=== PATIENT | female | born 1955 | race Caucasian/White ===

== ENCOUNTER → 2017-01-17 | Outpatient (CLI) | payer BC | LOC: CARD 11:38 | PROVIDERS: ATTEND Internal Medicine Interventional Cardiology | DX: R07.9 Chest pain, unspecified (principal); R42 Dizziness and giddiness; I10 Essential (primary) hypertension; E78.5 Hyperlipidemia, unspecified; R55 Syncope and collapse | CPT/HCPCS: 93306 ==

== ENCOUNTER 2017-02-14 08:05 | Outpatient (RCR) | payer BC ==
[2017-02-19] MEDS ORDERED: OMEG-160 PO (13:36)
[2017-02-19] MEDS ORDERED: GABA-486 PO (13:36)
[2017-02-19] MEDS ORDERED: ATEN50TA PO (13:36)
[2017-02-19] MEDS ORDERED: MELO15TA39 PO (13:36)
[2017-02-19] MEDS ORDERED: MULT1TAB69 PO (13:36)
[2017-02-19] MEDS ORDERED: DIAZ2TAB2 PO (13:36)
[2017-02-19] MEDS ORDERED: CITA40TA11 PO (13:36)
[2017-02-19] MEDS ORDERED: PRAV40TA2 PO (13:36)
[2017-02-19] MEDS ORDERED: HYDR25TA4 PO (13:36)
[2017-02-19] MEDS ORDERED: ESTR1TAB27 PO (13:36)
== END 2017-04-17 | disposition home or self-care (01) ==
LOC: CARD 08:05
PROVIDERS: ATTEND Internal Medicine Interventional Cardiology
DX: R42 Dizziness and giddiness (principal); R55 Syncope and collapse
CPT/HCPCS: 93270

== ENCOUNTER → 2017-02-15 | Outpatient (CLI) | payer BC ==
[~2017-02-15] VITALS: Ht 157.5 cm; Wt 90.3 kg
[~2017-02-15] MED LIST: CATHETER FLUSH 10 ML SYR IV PRN; REGADENOSON 0.4 MG/5 ML SYR (LEXISCAN) IV ONE
[2017-02-15 09:16] VITALS: BP 143/85
[2017-02-15 09:39] VITALS: BP 143/85
--- NOTE | 2017-02-16 21:25 | STRESS TEST ---
DATE OF SERVICE: 02/15/2017 PHARMACOLOGICAL NUCLEAR STRESS TEST REPORT PRIMARY PHYSICIAN: Anushka Ramirez MD. ATTENDING PHYSICIAN: Dr. Raquel Atkins. DIAGNOSIS: Chest pain. PROCEDURE DETAILS: The patient was brought to the stress lab after informed consent was taken. A stress test was performed according to the Lexiscan protocol. A 0.4 mg of IV Lexiscan was given. Low-grade exercise was performed. Resting EKG showed sinus rhythm at 60 beats per minute and blood pressure 143/85 mmHg. Maximum heart rate was 82 BPM and blood pressure was 148/82 mmHg. There was no chest pain, arrhythmias or ST changes noted during the stress test. A 10.14 mCi of Myoview were given for rest imaging and 30.1 mCi of Myoview were given for stress imaging. TID was 1.02 and EF of 76% with no wall motion abnormalities. There is moderate-sized anterior reversible defect noted. CONCLUSION: 1. Pharmacological stress test is negative for ischemia. 2. Normal LV function with no wall motion abnormalities. 3. There is evidence of anterior ischemia. Coronary angiography is recommended. Job ID: [id number] DocumentID: [id number] Dictated Date: 02/16/2017 16:22:29 Assistant Producer Date: 02/16/2017 20:17:47 Dictated By: JACINDA ATKINS MD
== END ==
LOC: CARD 07:19 → EDUNIT# 08:15
PROVIDERS: ATTEND Internal Medicine Interventional Cardiology
DX: R07.9 Chest pain, unspecified (principal); E78.5 Hyperlipidemia, unspecified; I10 Essential (primary) hypertension; R55 Syncope and collapse
CPT/HCPCS: 78452; 93017

== ENCOUNTER 2017-02-19 11:46 | Day surgery (SDC) | payer BC ==
[~2017-02-19] VITALS: Ht 157.5 cm; Wt 90.7 kg
[2017-02-19] VITALS (8 sets, daily range): BP systolic 105–181; BP diastolic 53–88
[2017-02-19] MEDS ORDERED: LIDOCAINE 1% INJ 50 ML (XYLOCAINE) VIAL ONE (11:58)
[2017-02-19] MEDS ORDERED: NS IV 1000 ML 1,000 ML ONE (11:58)
[2017-02-19] MEDS ORDERED: HEParin (CATH LAB) 2,000 ML IV ONE (11:58)
[2017-02-19 12:26] LABS: MEAN PLATELET VOLUME 10.1 FL (7.4-10.4); RED BLOOD COUNT 4.4 10^6/uL (4.35-5.85); WHITE BLOOD COUNT 11.3 10^3/uL (4.3-11.0)
[2017-02-19 12:39] LABS: PROTHROMBIN TIME PATIENT 12.8 SEC (12.2-14.7)
[2017-02-19 12:48] LABS: ALANINE AMINOTRANSFERASE 22 U/L (0-55); ALBUMIN 4.1 GM/DL (3.2-4.5); ANION GAP 10 MMOL/L (5-14); ASPARTATE AMINO TRANSFERASE 23 U/L (5-34); BILIRUBIN,TOTAL 0.7 MG/DL (0.1-1.0); BLOOD UREA NITROGEN 13 MG/DL (7-18); BUN/CREATININE RATIO 22; CALCIUM 9.4 MG/DL (8.5-10.1); CARBON DIOXIDE 29 MMOL/L (21-32); CHLORIDE 101 MMOL/L (98-107); CHOLESTEROL 187 MG/DL (< 200); CREATININE SERUM 0.58 MG/DL (0.60-1.30); DIRECT LDL 92 MG/DL (1-129); GFR ESTIMATED > 60; GLUCOSE 83 MG/DL (70-105); POTASSIUM 3.7 MMOL/L (3.6-5.0); SODIUM 140 MMOL/L (135-145); TOTAL PROTEIN 7.2 GM/DL (6.4-8.2); TRIGLYCERIDES 227 MG/DL (<150); VLDL CHOLESTEROL 45 MG/DL (5-40)
[2017-02-19] MEDS ORDERED: INFLUENZA TRIvalent 2017-2018 0.5 ML/45 MCG SYR IM ONE (13:00)
[2017-02-19] MEDS ORDERED: ESTR1TAB27 PO (13:36)
[2017-02-19] MEDS ORDERED: OMEG-160 PO (13:36)
[2017-02-19] MEDS ORDERED: HYDR25TA4 PO (13:36)
[2017-02-19] MEDS ORDERED: PRAV40TA2 PO (13:36)
[2017-02-19] MEDS ORDERED: GABA-486 PO (13:36)
[2017-02-19] MEDS ORDERED: CITA40TA11 PO (13:36)
[2017-02-19] MEDS ORDERED: DIAZ2TAB2 PO (13:36)
[2017-02-19] MEDS ORDERED: MELO15TA39 PO (13:36)
[2017-02-19] MEDS ORDERED: ATEN50TA PO (13:36)
[2017-02-19] MEDS ORDERED: MULT1TAB69 PO (13:36)
[2017-02-19] MEDS ORDERED: NS IV 1000 ML 1,000 ML IV SCH ×2 (14:00→16:37)
--- NOTE | 2017-02-19 15:19 | Cardiac Procedure Note-CS/ASA ---
Pre-Procedure Note Pre-Op Procedure Note H&P Reviewed The H&P was reviewed, patient examined and no changes noted. Date H&P Reviewed: Feb 19, 2017 Time H&P Reviewed: 15:19 Conscious Sedation Pre-Proced Time Reviewed: 15:19 ASA Class: 3 Airway Mallampati Classification: ([place] appropriate class) I. II. III, IV Lungs Heart ASA score ASA 1: a normal healthy patient ASA 2: a patient with a mild systemic disease (mid diabetes, controlled hypertension, obesity ASA 3: a patient with a severe systemic disease that limits activity (angina , COPD, prior Myocardial infarction) ASA 4: a patient with an incapacitating disease that is a constant threat to life (CHF, renal failure) ASA 5: a moribund patient not expected to survive 24 hrs. (ruptured aneurysm) ASA 6: a declared brain patient whose organs are being harvested. For emergent operations, add the letter E after the classification Grade 1 Sedation Plan: Analgesia, Amnesia, Plan communicated to team members, Discussed options with patient/fam, Discussed risks with patient/fam Note The patient is an appropriate candidate to undergo the planned procedure, sedation, and anesthesia. The patient immediately re-assessed prior to indication. Johnathon ROE MD Feb 19, 2017 3:19 pm
[2017-02-19] MEDS ORDERED: HEParin 1000 UNIT/ML (10ML VIAL) FOR BOLUS ONE (15:34)
[2017-02-19] MEDS ORDERED: VERAPAMIL 5 MG/2 ML (CALAN) VIAL IV ONE (15:34)
[2017-02-19] MEDS ORDERED: fentaNYL INJECTION 100 MCG/2 ML AMP ONE (15:34)
[2017-02-19] MEDS ORDERED: MIDAZOLAM 2 MG/2 ML (VERSED) VIAL ONE ×2 (15:34→16:14)
[2017-02-19] MEDS ORDERED: NITROGLYCERIN DRIP 25 MG/D5W 250 ML IV ONE (15:35)
--- NOTE | 2017-02-19 16:37 | Cardiology Post Procedure Note ---
Post-Procedure Note Physician (s)/[employer]er (s) Physician Johnathon ROE MD Pre-Procedure Diagnosis Pre-Procedure Diagnosis: recurrent chest pain, abnormal nuclear stress test Post-Procedure Note Procedure Start Date: Feb 19, 2017 Procedure Start Time: 16:00 Name of Procedure: coronary angiography, [facility] Findings/Procedure Note mild RCA disease. Mild mid LAD disease. No significant LCX disease. LVEDP 16mmhg. Normal EF Anesthesia Type: Conscious Sedation Estimated blood loss (mL): 10 Contrast Amount: 80 Post-Procedure Diagnosis Post-operative diagnosis: mild CAD normal LVEF Johnathon ROE MD Feb 19, 2017 4:37 pm
--- NOTE | 2017-02-19 16:39 | Discharge Inst-Post CATH ---
Discharge Inst-CATH Post Cardiac Cath D/C Inst Follow Up/Plan Dr Atkins in one month CARDIAC CATH DISCHARGE INSTRUCTIONS *Hold Metformin for 48 hours post heart cath. ACTIVITY * Go Home directly and rest. * Limit activity of the leg (or wrist if it was used) for 7 days including aerobics, swimming, jogging, bicycling, etc. * Restrict stair-climbing for 7 days if possible, if not, climb up with your non -cath leg, then bring together on the same step. * Avoid lifting, pushing, pulling or excessive movement of the affected extremity for 7 days. * Customary sexual activity may be resumed after 2 days-use caution not to use a position that strains or causes pain to the affected extremity. * No driving for 24 hours. * NO SMOKING. * Avoid straining for bowel movements for 7 days. * Gentle walking on level ground is allowed. * Returning to work will depend on the type of procedure and the results. Your doctor will discuss this with you. CALL YOUR DOCTOR FOR ANY OF THE FOLLOWING: *If bleeding from the puncture site occurs- Apply gentle pressure to site with clean cloth and call your doctor or EMS. * If a knot or lump forms under the skin, increases in size, or causes pain. * If bruising appears to be worsening or moving further down your leg instead of disappearing. * Temperature above 101 F. CARE OF YOUR GROIN INCISION; * Bruising or purple discoloration of the skin near the puncture site is common. * You may shower only, no bathtub bathing for 5 days. Be careful to avoid slipping as your leg may feel stiff. * If a closure device was used on your femoral artery, please see the attached guide regarding care of the device and your leg. * REMOVE the dressing from your groin the next day after your procedure in the shower. CARE OF YOUR WRIST INCISION; * Bruising or purple discoloration of the skin near the puncture site is common. * You may shower. * DO NOT submerge wrist. * Remove dressing in 24 hours. Johnathon ATKINS MD Feb 19, 2017 4:39 pm
--- NOTE | 2017-02-19 16:41 | Cardiology Discharge Summary ---
Diagnosis/Chief Complaint Date of Admission 02/19/2017 Date of Discharge 02/19/17 Admission Diagnosis recurrent chest pain, abnormal nuclear stress test Final/Discharge Diagnosis mild CAD Chief Complaint/HPI Chief Complaint/HPI recurrent chest pain Discharge Summary Procedures Coronary angiography reveals mild mid LAD and mid RCA disease. Normal LVEF. Discharge Physical Examination stable Hospital Course stable Pending Labs Laboratory Tests 02/19/17 12:20: White Blood Count 11.3, Red Blood Count 4.40, Hemoglobin 13.8, Hematocrit 40, Mean Corpuscular Volume 91, Mean Corpuscular Hemoglobin 31, Mean Corpuscular Hemoglobin Concent 35, Red Cell Distribution Width 13.0, Platelet Count 288, Mean Platelet Volume 10.1, Prothrombin Time 12.8, INR Comment 1.0, Activated Partial Thromboplast Time 27, Sodium Level 140, Potassium Level 3.7, Chloride Level 101, Carbon Dioxide Level 29, Anion Gap 10, Blood Urea Nitrogen 13, Creatinine 0.58, Estimat Glomerular Filtration Rate > 60, BUN/Creatinine Ratio 22, Glucose Level 83, Calcium Level 9.4, Total Bilirubin 0.7, Aspartate Amino Transf (AST/SGOT) 23, Alanine Aminotransferase (ALT/SGPT) 22, Alkaline Phosphatase 47, Total Protein 7.2, Albumin 4.1, Triglycerides Level 227, Cholesterol Level 187, LDL Cholesterol Direct 92, VLDL Cholesterol 45, HDL Cholesterol 60 Discussion & Recommendations Discussion follow up with dr lorenzo in one month Follow up appt.: one month Dicharge Diet: Cardiac Diet Activity as Tolerated: Yes Home Medications Reviewed patient Home Medication Reconciliation Form Discharge Home Medications: Reviewed and agree with Discharge Medication list on patient's Discharge Instruction sheet Condition at discharge stable Instructions to patient/family Dr Lorenzo in one month Johnathon LORENZO MD Feb 19, 2017 4:41 pm
[2017-02-19] MEDS ORDERED: PATIENT MAY USE OWN MEDS, ALL PO SCH (16:45)
--- NOTE | 2017-02-19 21:05 | CARDIAC CATHETERIZATION ---
DATE OF SERVICE: 02/19/2017 INDICATION: Recurrent chest pain, abnormal nuclear stress test. PREOPERATIVE DIAGNOSIS: Recurrent chest pain, abnormal nuclear stress test. POSTOPERATIVE DIAGNOSIS: Mild CAD. HISTORY: The patient is a 61-year-old lady with history of recurrent chest pain. Nuclear stress test was performed which showed evidence of anterior ischemia. Coronary angiography was recommended. PROCEDURES PERFORMED: 1. Coronary angiography. 2. Left heart catheterization. ESTIMATED BLOOD LOSS: 10 mL. ANESTHESIA: Conscious sedation. COMPLICATIONS: None. SPECIMENS: None. ANTICOAGULATION: IV heparin. CONTRAST DOSE: 80 mL of Omnipaque. FLUOROSCOPY TIME: 5.4 minutes. FLUOROSCOPY DOSE: 367 milligray. DESCRIPTION OF PROCEDURE: The patient was brought to the microbiological lab technician after informed consent was taken. All the risks and complications were explained in detail. The patient was draped and prepped in the usual sterile fashion. Access was gained with a 6-[place] sheath in the right radial artery. Coronary angiography of the RCA and left heart catheterization was performed with a [employer] catheter. Left coronary system was engaged with a JL4 catheter. FINDINGS: 1. Left main: Patent. 2. LAD: Mild mid disease. This is a transapical vessel. 3. Left circumflex artery patent. 4. RCA: Mild mid disease. 5. Left heart catheterization, LV pressure 95/9 mmHg. LVEDP 16 mmHg. Aortic pressure 100/61 mmHg. No gradient across the aortic valve. Normal LV function. LVEDP was 16 mmHg. IMPRESSION AND CONCLUSION: 1. Mild coronary artery disease. 2. Continue secondary prevention measures. 3. Mild elevation of LVEDP suggests mild diastolic dysfunction. Job ID: [id number] DocumentID: [id number] Dictated Date: 02/19/2017 16:47:39 Consumer Electronic Retail Specialist Date: 02/19/2017 21:04:12 Dictated By: JACINDA ROE MD
== END 2017-02-19 20:53 | disposition home or self-care (01) ==
LOC: CATH 11:46 → ICU 16:45 → CATH 20:53
PROVIDERS: ATTEND Internal Medicine Interventional Cardiology
DX: I25.10 Atherosclerotic heart disease of native coronary artery without angina pectoris (principal); I10 Essential (primary) hypertension; E78.5 Hyperlipidemia, unspecified; R42 Dizziness and giddiness; Z79.899 Other long term (current) drug therapy
CPT/HCPCS: 36415; 80053; 80061; 85027; 85610; 85730; 87081; 93458

== ENCOUNTER → 2017-03-29 | Day surgery (SDC) | payer BC ==
[~2017-03-29] VITALS: Ht 157.5 cm; Wt 88.9 kg
[~2017-03-29] MED LIST changes: +ATEN50TA PO; -CATHETER FLUSH 10 ML SYR IV PRN; +CITA40TA11 PO; +DIAZ2TAB2 PO; +ESTR1TAB27 PO; +GABA-486 PO; +HYDR25TA4 PO; +LIDOCAINE 1% INJ 50 ML (XYLOCAINE) VIAL ONE; +MELO15TA39 PO; +MULT1TAB69 PO; +OMEG-160 PO; +PRAV40TA2 PO; -REGADENOSON 0.4 MG/5 ML SYR (LEXISCAN) IV ONE
[2017-03-29 11:11] VITALS: BP 130/89
--- NOTE | 2017-03-29 13:25 | Implantation of Loop Monitor ---
Implant of Loop Monitior PROCEDURE PHYSICIAN: Raquel Atkins MD IMPLANTATION OF LOOP MONITOR REPORT DATE OF PROCEDURE: 03/29/17 ATTENDING PHYSICIAN: Dr. Jan Atkins. REFERRING PHYSICIAN: Dr. Anushka Ramirez PERFORMING PHYSICIAN: Dr. Jan Atkins. INDICATION: Long-term surveillance of atrial fibrillation PREOP DIAGNOSIS: Long-term surveillance of atrial fibrillation POSTOP DIAGNOSIS: Atrial fibrillation, s/p implantation of loop recorder. PROCEDURE DETAILS: The patient is a 62 female with history of paroxysmal atrial fibrillation requiring long-term surveillance. Therefore implantable loop recorder was discussed and agreed with the patient. Informed consent was taken. All risks and complications were discussed at length. The patient was draped and prepped in the usual sterile fashion. Local anesthesia was lidocaine, which was given in the substernal area close to the 4th intercostal space. Loop monitor was implanted according to the protocol. Steri-Strips were placed at the end of the procedure. There were no complications and the patient tolerated the procedure well. The device was interrogated with a voltage of 0.40 mV. Device was [employer] model 08191. Serial number [id number]. ANESTHESIA: Local anesthesia with lidocaine. COMPLICATIONS: None CONTRAST/FLUOROSCOPY: None CONCLUSION: 1. Successful implantation of loop monitor for recurrent syncope. 2. No complication and the patient tolerated the procedure well. Raquel Atkins MD, [facility], CCDS Cardiac Electrophysiology Johnathon ATKINS MD Mar 29, 2017 1:25 pm
== END | disposition home or self-care (01) ==
LOC: CATH 10:43
PROVIDERS: ATTEND Internal Medicine Interventional Cardiology
DX: I48.1 Persistent atrial fibrillation (principal); I10 Essential (primary) hypertension; E78.5 Hyperlipidemia, unspecified; R53.83 Other fatigue; E66.9 Obesity, unspecified; Z68.35 Body mass index [BMI] 35.0-35.9, adult; Z79.899 Other long term (current) drug therapy; Z82.3 Family history of stroke
CPT/HCPCS: 33282